=== PATIENT | female | born 1985 | race Asian ===

== ENCOUNTER 2018-07-28 03:37 | Emergency (ER) | payer BC ==
[~2018-07-28] VITALS: Ht 172.7 cm; Wt 63.5 kg
--- NOTE | 2018-07-28 03:38 | NUR ---
Placed in room 8 . Placed on production operator, blood pressure machine and pulse oximeter. To gown for exam. Side rails up. Report given to Arcelia DICKSON.
[2018-07-28 03:39] VITALS: BP_SYST 123
--- NOTE | 2018-07-28 03:40 | NUR ---
Pt came o the ED for epigastric ABD pain 9/10 which started 6 hours ago. Reports nausea but denies vomiting. Denies constipation or diarrhea. Denies SOB or fever. No other complaints/injuries noted. Will cont. to monitor. Addendum: 07/28/18 at 0552 by [email or web address] Pt came to the ED for epigastric ABD pain 9/10 which started 6 hours ago. Reports nausea but denies vomiting. Denies constipation or diarrhea. Denies SOB or fever. No other complaints/injuries noted. Will cont. to monitor.
--- NOTE | 2018-07-28 03:45 | NUR ---
STACIE Cardona at bedside examining patient.
[2018-07-28] MEDS ORDERED: LIDOCAINE VISCOUS 2%, 15 ML UDC MM ONE (04:00)
[2018-07-28] MEDS ORDERED: BELLADONNA ALKALOIDS/PHENOBARB 5 ML UDC PO ONE (04:00)
[2018-07-28] MEDS ORDERED: MAG-AL HYDROX/SIMETH 30 ML UDC PO ONE (04:00)
[2018-07-28] MEDS ORDERED: MAG HYDROX/AL HYDROX/SIMETH 30 ML, DICYCLOMINE HCL 20 MG, LIDOCAINE VISCOUS 2% 15ML (PO... PO ONE ×3 (04:15)
[2018-07-28] MEDS ORDERED: ONDANSETRON 4 MG ODT TAB PO ONE (04:15)
[2018-07-28 04:21] LABS: BASOPHILS % (AUTO) 0.3 % (0.0-2.0); EOSINOPHILS # (AUTO) 0.1 K/uL (0.0-0.4); EOSINOPHILS % (AUTO) 0.7 % (0.0-4.0); HEMATOCRIT 42.5 % (36-48); HEMOGLOBIN 14.3 g/dL (12.0-16.0); LYMPHOCYTES # (AUTO) 1.7 K/uL (1.0-5.5); LYMPHOCYTES % (AUTO) 16.7 % (20.5-51.5); MEAN CORPUSCULAR HEMOGLOBIN 29 pg (27-31); MEAN CORPUSCULAR HGB CONC 34 % (32-36); MEAN CORPUSCULAR VOLUME 86 fL (79.0-98.0); MONOCYTES # (AUTO) 0.6 K/uL (0.0-1.0); MONOCYTES % (AUTO) 5.8 % (1.7-9.3); NEUTROPHILS # (AUTO) 7.8 K/uL (1.8-7.7); NEUTROPHILS % (AUTO) 76.5 % (40.0-70.0); PLATELET COUNT (AUTO) 308 K/uL (130-430); RED BLOOD CELL COUNT(AUTO) 4.97 MIL/uL (4.2-6.2); RED CELL DISTRIBUTION WIDTH 13.4 % (9.0-15.0); WHITE BLOOD COUNT (AUTO) 10.1 K/uL (4.8-10.8)
[2018-07-28] MEDS ORDERED: ONDANSETRON 4 MG ODT TAB ONE (04:24)
[2018-07-28 04:35] LABS: CALCIUM 8.9 mg/dL (8.4-11.0); CREATININE 0.79 mg/dL (0.55-1.30); POTASSIUM 3.9 mmol/L (3.5-5.1)
[2018-07-28 04:40] LABS: ALBUMIN 3.7 g/dL (3.4-4.8); TOTAL BILIRUBIN 0.2 mg/dL (0.0-1.0)
[2018-07-28 04:58] LABS: BILIRUBIN,URINE NEGATIVE (NEGATIVE); BLOOD, URINE NEGATIVE (NEGATIVE); CLARITY/URINE HAZY (CLEAR); COLOR,URINE YELLOW (YELLOW); GLUCOSE,URINE NEGATIVE (NEGATIVE); KETONES,URINE NEGATIVE (NEGATIVE); LEUKOCYTE ESTERASE ,URINE 1+ (NEGATIVE); NITRITE, URINE NEGATIVE (NEGATIVE); PH,URINE 7.5 (5.0-8.0); PROTEIN URINE NEGATIVE (NEGATIVE); UROBILINOGEN,URINE 0.2 (0.2-1.0)
[2018-07-28 05:02] LABS: BACTERIA,URINE MODERATE /HPF (None Seen); RBC,URINE 0-3 /HPF (0-3)
[2018-07-28 05:03] LABS: YEAST,URINE Few /HPF (None Seen)
[2018-07-28] MEDS ORDERED: NACL 0.9% 1,000 ML IV ONE (05:15)
[2018-07-28] MEDS ORDERED: KETOROLAC TROMETHAMINE 30 MG VIAL IVP ONE (05:15)
[2018-07-28] MEDS ORDERED: ONDANSETRON HCL 4 MG/2 ML VIAL IVP ONE (05:15)
--- NOTE | 2018-07-28 05:20 | NUR ---
Pt went to ultrasound via wheelchair. Tolerated well. Will cont. to monitor.
--- NOTE | 2018-07-28 05:30 | NUR ---
Pt states that pain has decreased from 11/07 to 09/06. ER made aware.
[2018-07-28] MEDS ORDERED: MORPHINE 4 MG/ML INJ. SYRINGE IVP ONE (05:45)
--- NOTE | 2018-07-28 07:06 | NUR ---
Dr. Pop at bedside speaking to pt.
--- NOTE | 2018-07-28 07:10 | NUR ---
Patient given written and verbal discharge instructions and verbalizes understanding. ER MD Dr. Pop discussed with patient the results and treatment provided. Patient in stable condition. ID arm band removed. IV catheter removed intact and dressing applied, no active bleeding. Rx of naproxyn and norco given. Patient educated on pain management and to follow up with PMD. Pain Scale 2/10, tolerable for pt. Pt able to ambulate with steady gait. Opportunity for questions provided and answered. Medication side effect fact sheet provided.
--- NOTE | 2018-07-28 07:13 | NUR ---
Per MD Dr. Pop, it is okay for pt to drive home.
[2018-07-28 07:14] VITALS: BP_SYST 123
== END 2018-07-28 07:14 | disposition home or self-care (01) ==
LOC: SED 03:37
DX: K80.20 Calculus of gallbladder without cholecystitis without obstruction (principal)
CPT/HCPCS: 36415; 76700; 80053; 81000; 81025; 83690; 85025; 87086; 93005; 96374; 96375; 99284; J1885; J2001; J2270; J2405; J7030; Q0162